=== PATIENT | female | born 1935 | race Caucasian/White ===

== ENCOUNTER 2018-04-01 13:22 | Observation (INO) | payer MEDICARE, OTHER ==
[2018-04-01] MEDS ORDERED: Sodium Chloride 0.9% 2.5 ML Syringe FLUSH PRN (13:42)
[2018-04-01] MEDS ORDERED: Sodium Chloride 0.9% 10 ML Syringe FLUSH PRN (13:42)
--- NOTE | 2018-04-01 13:43 | EDM.PDOC ---
ED HPI GENERAL MEDICAL PROBLEM - General Chief Complaint: General Stated Complaint: PT DOESN'T FEEL GOOD, BODY SORE Time Seen by Provider: 04/01/18 13:43 Source of Information: Reports: Patient History Limitations: Reports: No Limitations - History of Present Illness INITIAL COMMENTS - FREE TEXT/NARRATIVE: HISTORY AND PHYSICAL: History of present illness: Patient is an 82-year-old female who presents to the emergency room today with complaints of chest pain that is located under the left breast and goes into the axillary line. She states approximately one week ago she had fallen backwards onto her buttocks from the bed to the floor. She states since that time she has generalized body aches, intermittent nausea and left-sided chest wall pain that has not improved. [place] live with her daughter. The daughter had brought the patient to [facility] on Tuesday; a chest xray was done - but they did not have any of the results. Past Medical history of TIA, stents, and heart disease. Review of systems: As per history of present illness and below otherwise all systems reviewed and negative. Past medical history: As per history of present illness and as reviewed below otherwise noncontributory. Surgical history: As per history of present illness and as reviewed below otherwise noncontributory. Social history: No reported history of drug or alcohol abuse. Family history: As per history of present illness and as reviewed below otherwise noncontributory. Physical exam: General: Well-developed and well-nourished 82-year-old female. Alert and oriented. Nontoxic appearing and in no acute distress. HEENT: Atraumatic, normocephalic, pupils equal and reactive bilaterally, negative for conjunctival pallor or scleral icterus, mucous membranes moist, TMs normal bilaterally, hard of hearing, throat clear, neck supple, nontender, trachea midline. No drooling or trismus noted. No meningeal signs Lungs: Clear to auscultation, breath sounds equal bilaterally, chest nontender. Heart: S1S2, regular rate and rhythm without overt murmur Abdomen: Soft, nondistended, nontender. Negative for masses or hepatosplenomegaly. Negative for costovertebral tenderness. Pelvis: Stable nontender. Genitourinary: Deferred. Rectal: Deferred. Skin: Intact, warm, dry. No lesions or rashes noted. Extremities: Atraumatic, negative for cords or calf pain. Neurovascular unremarkable. Neuro: Awake, alert, oriented. Cranial nerves II through XII unremarkable. Cerebellum unremarkable. Motor and sensory unremarkable throughout. Exam nonfocal. Notes: BUN/creatinine and creatinine are slightly elevated which I feel is due to her being slightly dehydrated. Nursing staff was able to get a urine but was not enough volume to run for urinalysis. We will try again for urine sample to send. Patient has had multiple stools while being here in the emergency room. The patient reports she does take a stool softener as she frequently does get constipated. But denies any abdominal pain associated with the loose stools. Stool studies have been added. Head CT and chest x-ray are unremarkable. Still waiting for urinalysis and stool results. No signs are stable. Patient states she feels somewhat improved. I did offer admission which she is agreeable. Dr. Muhammad was consult did on this case. She will be admitted for observation for chest pain rule out CA Diagnostics: CBC, CMP, troponin, EKG, UA, chest x-ray, head CT Therapeutics: IV 250 mL bolus then 125 an hour Impression: Chest Pain rule out CA Plan: Survey patient to [facility] with telemetry per Dr. Muhammad Definitive disposition and diagnosis as appropriate pending reevaluation and review of above. Left Rib pain Pain Score (Numeric/FACES): 7 - Related Data Allergies Allergy/AdvReac Type Severity Reaction Status Date / Time No Known Allergies Allergy Verified 04/01/18 13:54 Home Meds: Home Meds Aspirin 81 mg PO DAILY 04/01/18 [History] Baclofen 04/01/18 [History] Clopidogrel [Plavix] 75 mg PO DAILY 04/01/18 [History] Esomeprazole Magnesium 1 mg PO QAM 04/01/18 [History] Hydrocodone/Acetaminophen [Hydrocodon-Acetaminophn 10-325] 1 tab PO Q4H PRN 07/09 [History] Isosorbide Mononitrate [Isosorbide Mononitrate ER] 60 mg PO DAILY 04/01/18 [ History] Levothyroxine Sodium [Levo-T] 50 mcg PO DAILY 04/01/18 [History] Lisinopril [Zestril] 40 mg PO DAILY 04/01/18 [History] Potassium Chloride 20 meq PO DAILY 04/01/18 [History] Sertraline HCl 100 mg PO DAILY 04/01/18 [History] Spironolactone [Aldactone] 0.5 tab PO DAILY 04/01/18 [History] amLODIPine Besylate [Amlodipine Besylate] 10 mg PO DAILY 04/01/18 [History] traZODone HCl [Trazodone HCl] 100 mg PO QPM 04/01/18 [History] ED ROS GENERAL - Review of Systems Review Of Systems: ROS reveals no pertinent complaints other than HPI. ED EXAM, GENERAL - Physical Exam Exam: See Below (See dictation) Course - Vital Signs Last Recorded V/S: Last Vital Signs Temp 98.2 F 04/01/18 15:44 Pulse 89 04/01/18 15:44 Resp BP 118/72 04/01/18 15:44 Pulse Ox 91 L 04/01/18 15:44 - Orders/Labs/Meds Orders: Active Orders 24 hr Category Date Time Status Admission Status [Patient Status] [ADT] Stat ADT 04/01/18 15:13 Ordered Cardiac Monitoring [RC] . DIRECTED Care 04/01/18 15:13 Ordered EKG Documentation Completion [RC] STAT Care 04/01/18 13:42 Active Telemetry Monitoring [Cardiac Monitoring] [RC] . Care 04/01/18 15:39 Active DIRECTED Chest 1V Frontal [CR] Stat Exams 04/01/18 13:42 Taken Head wo Cont [CT] Stat Exams 04/01/18 13:53 Ordered CULTURE STOOL + CAMPY+SHIGATOX [RM] Stat Lab 04/01/18 14:49 Ordered UA W/MICROSCOPIC [URIN] Stat Lab 04/01/18 13:53 Ordered Sodium Chloride 0.9% [Saline Flush] Med 04/01/18 13:42 Active 10 ml FLUSH ASDIRECTED PRN Sodium Chloride 0.9% [Saline Flush] Med 04/01/18 13:42 Active 2.5 ml FLUSH ASDIRECTED PRN Saline Lock Insert [OM.PC] Stat Oth 04/01/18 13:42 Ordered Medication Orders Sodium Chloride (Saline Flush) 10 ml FLUSH ASDIRECTED PRN PRN Reason: Keep Vein Open Sodium Chloride (Saline Flush) 2.5 ml FLUSH ASDIRECTED PRN PRN Reason: Keep Vein Open Labs: Laboratory Tests 04/01/18 04/01/18 Range/Units 14:39 14:39 WBC 6.62 (4.0-11.0) K/uL RBC 4.67 (4.30-5.90) M/uL Hgb 14.0 (12.0-16.0) g/dL Hct 42.1 (36.0-46.0) % MCV 90.1 (80.0-98.0) fL MCH 30.0 (27.0-32.0) pg MCHC 33.3 (31.0-37.0) g/dL RDW Std Deviation 45.3 (28.0-62.0) fl RDW Coeff of Leanna 14 (11.0-15.0) % Plt Count 200 (150-400) K/uL MPV 11.00 (7.40-12.00) fL Neut % (Auto) 74.8 (48.0-80.0) % Lymph % (Auto) 15.6 L (16.0-40.0) % [place] % (Auto) 9.1 (0.0-15.0) % Eos % (Auto) 0.3 (0.0-7.0) % Baso % (Auto) 0.2 (0.0-1.5) % Neut # (Auto) 5.0 (1.4-5.7) K/uL Lymph # (Auto) 1.0 (0.6-2.4) K/uL [place] # (Auto) 0.6 (0.0-0.8) K/uL Eos # (Auto) 0.0 (0.0-0.7) K/uL Baso # (Auto) 0.0 (0.0-0.1) K/uL Nucleated RBC % 0.0 /100WBC Nucleated RBCs # 0 K/uL Sodium 138 (136-145) mmol/L Potassium 3.8 (3.5-5.1) mmol/L Chloride 102 (98-107) mmol/L Carbon Dioxide 28.2 (21.0-32.0) mmol/L BUN 20 H (7.0-18.0) mg/dL Creatinine 1.2 H (0.6-1.0) mg/dL Est Cr Clr Drug Dosing 33.08 mL/min Estimated GFR (MDRD) 43.1 ml/min Glucose 112 H (74-106) mg/dL Calcium 8.7 (8.5-10.1) mg/dL Total Bilirubin 0.4 (0.2-1.0) mg/dL AST 13 L (15-37) IU/L ALT 24 (14-63) IU/L Alkaline Phosphatase 61 (46-116) U/L Creatine Kinase 194 (26-308) U/L Troponin I < 0.050 (0.000-0.056) ng/mL Total Protein 7.0 (6.4-8.2) g/dL Albumin 3.4 (3.4-5.0) g/dL Globulin 3.6 H (2.0-3.5) g/dL Albumin/Globulin Ratio 0.9 L (1.3-2.8) Meds: Medications Generic Name Dose Route Start Last Admin Trade Name Freq PRN Reason Stop Dose Admin Sodium Chloride 10 ml 04/01/18 13:42 Saline Flush FLUSH ASDIRECTED PRN Keep Vein Open Sodium Chloride 2.5 ml 04/01/18 13:42 Saline Flush FLUSH ASDIRECTED PRN Keep Vein Open Discontinued Medications Generic Name Dose Route Start Last Admin Trade Name Freq PRN Reason Stop Dose Admin Sodium Chloride 1,000 mls @ 999 mls/hr 04/01/18 13:47 04/01/18 15:46 Normal Saline IV 04/01/18 14:47 Infused STAT ONE Infusion Ketorolac Tromethamine 30 mg 04/01/18 13:54 04/01/18 14:43 Toradol IVPUSH 04/01/18 13:55 30 mg ONETIME ONE Administration Ondansetron HCl 4 mg 04/01/18 13:54 04/01/18 14:39 Zofran IVPUSH 04/01/18 13:55 4 mg ONETIME ONE Administration Departure - Departure Time of Disposition: 15:20 Disposition: Refer to Observation Clinical Impression: Chest pain, rule out acute myocardial infarction - Discharge Information Referrals: PCP,None [Primary Care Provider] - Forms: ED Department Discharge - My Orders Last 24 Hours: My Active Orders 04/01/18 13:42 EKG Documentation Completion [RC] STAT Chest 1V Frontal [CR] Stat Sodium Chloride 0.9% [Saline Flush] 10 ml FLUSH ASDIRECTED PRN Sodium Chloride 0.9% [Saline Flush] 2.5 ml FLUSH ASDIRECTED PRN Saline Lock Insert [OM.PC] Stat 04/01/18 13:53 Head wo Cont [CT] Stat UA W/MICROSCOPIC [URIN] Stat 04/01/18 14:49 CULTURE STOOL + CAMPY+SHIGATOX [RM] Stat 04/01/18 15:13 Admission Status [Patient Status] [ADT] Stat Cardiac Monitoring [RC] . DIRECTED - Assessment/Plan Last 24 Hours: My Active Orders 04/01/18 13:42 EKG Documentation Completion [RC] STAT Chest 1V Frontal [CR] Stat Sodium Chloride 0.9% [Saline Flush] 10 ml FLUSH ASDIRECTED PRN Sodium Chloride 0.9% [Saline Flush] 2.5 ml FLUSH ASDIRECTED PRN Saline Lock Insert [OM.PC] Stat 04/01/18 13:53 Head wo Cont [CT] Stat UA W/MICROSCOPIC [URIN] Stat 04/01/18 14:49 CULTURE STOOL + CAMPY+SHIGATOX [RM] Stat 04/01/18 15:13 Admission Status [Patient Status] [ADT] Stat Cardiac Monitoring [RC] . DIRECTED
[2018-04-01] MEDS ORDERED: Sodium Chloride 0.9% 1,000 ML IV ONE (13:47)
[2018-04-01] MEDS ORDERED: Ketorolac 30 MG/ML SDV IVPUSH ONE (13:54)
[2018-04-01] MEDS ORDERED: Ondansetron 4 MG/2 ML SDV IVPUSH ONE (13:54)
[2018-04-01 15:08] LABS: CHLORIDE,CL 102 mmol/L (98-107); SODIUM,NA 138 mmol/L (136-145)
[2018-04-01] MEDS ORDERED: Ondansetron 4 MG/2 ML SDV IVPUSH PRN (16:41)
[2018-04-01] MEDS ORDERED: Nitroglycerin 0.4 MG Tab.SL SL PRN (16:41)
[2018-04-01] MEDS ORDERED: Enoxaparin 40 MG/0.4 ML Syringe SUBCUT SCH (16:45)
[2018-04-01] MEDS ORDERED: Sodium Chloride 0.9% 1,000 ML IV SCH (16:45)
[2018-04-01] MEDS ORDERED: Morphine 2 MG/ML Syringe IVPUSH PRN (16:47)
--- NOTE | 2018-04-01 17:10 | PCM.HP ---
H&P History of Present Illness - General Date of Service: 04/01/18 Admit Problem/Dx: Admission Diagnosis/Problem Admission Diagnosis/Problem Chest pain Source of Information: Patient, Family History Limitations: Reports: No Limitations - History of Present Illness Initial Comments - Free Text/Narative: The patient is an 82-year-old female who presented to the ER today with chest pain, overall body aches, and "just not feeling good". The patient recently moved to [place] to live with her daughter. She established care with Dr. Barragan last week. One week ago she slid off the bed and landed on her buttocks. Since then she's been having intermittent nausea, generalized body aches and chest pain associated with breathing between her shoulder blades. The patient does have a past medical history of CAD with cardiac stents. She was having similar symptoms when she saw Dr. Person, and they did a chest x-ray , but they're unsure of the results. In the ER, initial workup included a CBC, CMP, negative troponin, and CK within normal limits. A EKG was done that showed an irregular rhythm, right bundle branch block, left ventricular hypertrophy with intraventricular conduction delay. Chest x-ray was performed and showed scarring in the left midlung, but no consolidation, and a normal heart size. 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 . UA and stool studies are pending. The patient had multiple episodes of loose stool while in the ER. Patient believes that's because she was taking too many laxatives at home this past week. Left Rib pain Pain Score (Numeric/FACES): 7 - Related Data Allergies/Adverse Reactions: Allergies Allergy/AdvReac Type Severity Reaction Status Date / Time No Known Allergies Allergy Verified 04/01/18 13:54 Home Medications: Home Meds Aspirin 81 mg PO DAILY 04/01/18 [History] Baclofen 04/01/18 [History] Clopidogrel [Plavix] 75 mg PO DAILY 04/01/18 [History] Esomeprazole Magnesium 1 mg PO QAM 04/01/18 [History] Hydrocodone/Acetaminophen [Hydrocodon-Acetaminophn 10-325] 1 tab PO Q4H PRN 07/09 [History] Isosorbide Mononitrate [Isosorbide Mononitrate ER] 60 mg PO DAILY 04/01/18 [ History] Levothyroxine Sodium [Levo-T] 50 mcg PO DAILY 04/01/18 [History] Lisinopril [Zestril] 40 mg PO DAILY 04/01/18 [History] Potassium Chloride 20 meq PO DAILY 04/01/18 [History] Sertraline HCl 100 mg PO DAILY 04/01/18 [History] Spironolactone [Aldactone] 0.5 tab PO DAILY 04/01/18 [History] amLODIPine Besylate [Amlodipine Besylate] 10 mg PO DAILY 04/01/18 [History] traZODone HCl [Trazodone HCl] 100 mg PO QPM 04/01/18 [History] Past Medical History Cardiovascular History: Reports: High Cholesterol, Hypertension, SC, Stents Respiratory History: Reports: Other (See Below) Other Respiratory History: previous smoker - quit 1995 Gastrointestinal History: Reports: Chronic Constipation, Inflammatory Bowel Disease Genitourinary History: Reports: Urinary Incontinence, Other (See Below) Other Genitourinary History: stress incontinence Musculoskeletal History: Reports: Arthritis, Back Pain, Chronic Neurological History: Reports: TIA Psychiatric History: Reports: Anxiety Endocrine/Metabolic History: Reports: Hypothyroidism Hematologic History: Reports: None Immunologic History: Reports: None Oncologic (Cancer) History: Reports: None Dermatologic History: Reports: None - Past Surgical History HEENT Surgical History: Reports: Cataract Surgery, Naso-Sinus Surgery Cardiovascular Surgical History: Reports: Coronary Artery Stent Respiratory Surgical History: Reports: None GI Surgical History: Reports: None Female Surgical History: Reports: None Endocrine Surgical History: Reports: Thyroidectomy Neurological Surgical History: Reports: Discectomy Social & Family History - Family History Family Medical History: Noncontributory - Tobacco Use Smoking Status *Q: Former Smoker Used Tobacco, but Quit: Yes Month/Year Tobacco Last Used: 30 years ago - Caffeine Use Caffeine Use: Reports: Coffee, Other Other Caffeine Use: gatorade - Recreational Drug Use Recreational Drug Use: No H&P Review of Systems - Review of Systems: Review Of Systems: See Below General: Reports: No Symptoms HEENT: Reports: Headaches Pulmonary: Reports: Shortness of Breath, Pleuritic Chest Pain Cardiovascular: Reports: Chest Pain Gastrointestinal: Reports: Diarrhea, Nausea. Denies: Abdominal Pain, Vomiting Genitourinary: Reports: No Symptoms Musculoskeletal: Reports: Back Pain Skin: Reports: No Symptoms Psychiatric: Reports: No Symptoms Neurological: Reports: No Symptoms Exam - Exam Exam: See Below - Vital Signs Vital Signs: Last Vital Signs Temp 98 F 04/01/18 16:06 Pulse 83 04/01/18 16:06 Resp 18 04/01/18 16:06 BP 163/91 H 04/01/18 16:06 Pulse Ox 93 L 04/01/18 16:06 Weight: 68.402 kg - Exam General: Alert, Oriented, Cooperative HEENT: Conjunctiva Clear, Mucosa Moist & [place], Posterior Pharynx Clear. No: Pupils Equal (L>R) Lungs: Clear to Auscultation, Normal Respiratory Effort Cardiovascular: Regular Rate, Irregular Rhythm, Systolic Murmur GI/Abdominal Exam: Normal Bowel Sounds, Soft, Non-Tender, No Distention Extremities: Normal Inspection, Non-Tender, No Pedal Edema Skin: Warm, Dry Neurological: Strength Equal Bilateral, Normal Speech Neuro Extensive - Motor, Sensory, Reflexes: CN II-XII Intact Psychiatric: Alert, Normal Affect, Normal Mood - Patient Data Lab Results Last 24 hrs: Laboratory Results - last 24 hr 04/01/18 04/01/18 Range/Units 14:39 14:39 WBC 6.62 (4.0-11.0) K/uL RBC 4.67 (4.30-5.90) M/uL Hgb 14.0 (12.0-16.0) g/dL Hct 42.1 (36.0-46.0) % MCV 90.1 (80.0-98.0) fL MCH 30.0 (27.0-32.0) pg MCHC 33.3 (31.0-37.0) g/dL RDW Std Deviation 45.3 (28.0-62.0) fl RDW Coeff of Leanna 14 (11.0-15.0) % Plt Count 200 (150-400) K/uL MPV 11.00 (7.40-12.00) fL Neut % (Auto) 74.8 (48.0-80.0) % Lymph % (Auto) 15.6 L (16.0-40.0) % [place] % (Auto) 9.1 (0.0-15.0) % Eos % (Auto) 0.3 (0.0-7.0) % Baso % (Auto) 0.2 (0.0-1.5) % Neut # (Auto) 5.0 (1.4-5.7) K/uL Lymph # (Auto) 1.0 (0.6-2.4) K/uL [place] # (Auto) 0.6 (0.0-0.8) K/uL Eos # (Auto) 0.0 (0.0-0.7) K/uL Baso # (Auto) 0.0 (0.0-0.1) K/uL Nucleated RBC % 0.0 /100WBC Nucleated RBCs # 0 K/uL Sodium 138 (136-145) mmol/L Potassium 3.8 (3.5-5.1) mmol/L Chloride 102 (98-107) mmol/L Carbon Dioxide 28.2 (21.0-32.0) mmol/L BUN 20 H (7.0-18.0) mg/dL Creatinine 1.2 H (0.6-1.0) mg/dL Est Cr Clr Drug Dosing 33.08 mL/min Estimated GFR (MDRD) 43.1 ml/min Glucose 112 H (74-106) mg/dL Calcium 8.7 (8.5-10.1) mg/dL Total Bilirubin 0.4 (0.2-1.0) mg/dL AST 13 L (15-37) IU/L ALT 24 (14-63) IU/L Alkaline Phosphatase 61 (46-116) U/L Creatine Kinase 194 (26-308) U/L Troponin I < 0.050 (0.000-0.056) ng/mL Total Protein 7.0 (6.4-8.2) g/dL Albumin 3.4 (3.4-5.0) g/dL Globulin 3.6 H (2.0-3.5) g/dL Albumin/Globulin Ratio 0.9 L (1.3-2.8) Result Diagrams: 04/01/18 14:39 04/01/18 14:39 Problem List Initiated/Reviewed/Updated: Yes Orders Last 24hrs: Active Orders 24 hr Category Date Time Status Admission Status [Patient Status] [ADT] Stat ADT 04/01/18 15:13 Active Cardiac Monitoring [RC] . DIRECTED Care 04/01/18 15:13 Active Cardiac Monitoring [RC] . DIRECTED Care 04/01/18 16:41 Active EKG Documentation Completion [RC] STAT Care 04/01/18 13:42 Active Intake and Output [RC] ASDIRECTED Care 04/01/18 16:41 Active Telemetry Monitoring [Cardiac Monitoring] [RC] . Care 04/01/18 15:39 Active DIRECTED Vital Signs [RC] PER UNIT ROUTINE Care 04/01/18 16:41 Active Heart Healthy Diet [DIET] Diet 04/02/18 Breakfast Active Chest 1V Frontal [CR] Stat Exams 04/01/18 13:42 Taken Head wo Cont [CT] Stat Exams 04/01/18 13:53 Taken CULTURE STOOL + CAMPY+SHIGATOX [RM] Stat Lab 04/01/18 14:49 Ordered UA W/MICROSCOPIC [URIN] Stat Lab 04/01/18 13:53 Ordered Acetaminophen/HYDROcodone [Roscoe 325-10 MG] Med 04/01/18 16:45 Active 1 tab PO Q4H PRN Aspirin Med 04/02/18 09:00 Active 81 mg PO DAILY Baclofen [Lioresal] Med 04/01/18 16:45 Unverified DOSE UNIT RTE FREQ Clopidogrel [Plavix] Med 04/02/18 09:00 Active 75 mg PO DAILY Enoxaparin [Lovenox] Med 04/01/18 16:45 Active 40 mg SUBCUT Q24H Esomeprazole Magnesium Med 04/02/18 09:00 Ordered 1 mg PO QAM Isosorbide Mononitrate [Imdur] Med 04/02/18 09:00 Active 60 mg PO DAILY Levothyroxine [Synthroid] Med 04/02/18 07:30 Active 50 mcg PO ACBREAKFAST Lisinopril [Zestril] Med 04/02/18 09:00 Ordered 40 mg PO DAILY Morphine Med 04/01/18 16:47 Active 2 mg IVPUSH Q2H PRN Nitroglycerin [Nitrostat] Med 04/01/18 16:41 Active 0.4 mg SL Q5M PRN Ondansetron [Zofran] Med 04/01/18 16:41 Active 4 mg IVPUSH Q4H PRN Potassium Chloride [Potassium Chloride] Med 04/02/18 09:00 Ordered 20 meq PO DAILY Sertraline [Zoloft] Med 04/02/18 09:00 Ordered 100 mg PO DAILY Sodium Chloride 0.9% [Normal Saline] 1,000 ml Med 04/01/18 16:45 Active IV ASDIRECTED Sodium Chloride 0.9% [Saline Flush] Med 04/01/18 13:42 Active 10 ml FLUSH ASDIRECTED PRN Sodium Chloride 0.9% [Saline Flush] Med 04/01/18 13:42 Active 2.5 ml FLUSH ASDIRECTED PRN Spironolactone [Aldactone] Med 04/02/18 09:00 Ordered DOSE mg PO DAILY amLODIPine [Norvasc] Med 04/02/18 09:00 Active 10 mg PO DAILY traZODone HCl [Trazodone HCl] Med 04/01/18 18:00 Ordered 100 mg PO QPM Saline Lock Insert [OM.PC] Stat Oth 04/01/18 13:42 Ordered Resuscitation Status Routine Resus Stat 04/01/18 16:41 Ordered Medication Orders Hydrocodone Bitart/Acetaminophen ([place]coe 325-10 Mg) 1 tab PO Q4H PRN PRN Reason: Pain Amlodipine Besylate (Norvasc) 10 mg PO DAILY [facility] Aspirin (Aspirin) 81 mg PO DAILY [facility] Clopidogrel Bisulfate (Plavix) 75 mg PO DAILY [facility] Enoxaparin Sodium (Lovenox) 40 mg SUBCUT Q24H [facility] Sodium Chloride (Normal Saline) 1,000 mls @ 100 mls/hr IV ASDIRECTED TAMARA Stop: 04/02/18 02:44 Isosorbide Mononitrate (Imdur) 60 mg PO DAILY [facility] Levothyroxine Sodium (Synthroid) 50 mcg PO ACBREAKFAST [facility] Morphine Sulfate (Morphine) 2 mg IVPUSH Q2H PRN PRN Reason: Chest Pain Nitroglycerin (Nitrostat) 0.4 mg SL Q5M PRN PRN Reason: Chest Pain Non-Formulary Medication (Esomeprazole Magnesium) 1 mg PO QAM [facility] Non-Formulary Medication (Lisinopril [Zestril]) 40 mg PO DAILY [facility] Non-Formulary Medication (Potassium Chloride [Potassium Chloride]) 20 meq PO DAILY [facility] Ondansetron HCl (Zofran) 4 mg IVPUSH Q4H PRN PRN Reason: Nausea/Vomiting Sertraline HCl (Zoloft) 100 mg PO DAILY [facility] Sodium Chloride (Saline Flush) 10 ml FLUSH ASDIRECTED PRN PRN Reason: Keep Vein Open Sodium Chloride (Saline Flush) 2.5 ml FLUSH ASDIRECTED PRN PRN Reason: Keep Vein Open Spironolactone (Aldactone) mg PO DAILY [facility] Trazodone HCl (Trazodone Hcl) 100 mg PO QPM [facility] Assessment/Plan Comment:: 1. Admit for observation 2. Code Status- Full 3. Vitals per routine 4. I/Os per routine 5. Diet- heart healthy 6. DVT prophylaxis with lovenox 7. Chest pain in patient with significant cardiac history, ACS rule out Plan- Her pain sounds more pleuritic but we will place the patient on telemetry and trend her troponins. She will have morphine and nitro if she develops chest pain. 8. TERRY likely secondary to dehydration Plan- She already recieved fluids in the ER but we will give her 1 L of Normal saline at 100cc/hr. Recheck kidney function in the morning 9. Nausea/diarrhea Plan- Zofran for nausea. Stool studies pending for diarrhea 10.PMH- hypertension, hyperlipidemia, hypothyroidism, depression, CAD- continue home meds
[2018-04-01] MEDS: Acetaminophen/HYDROcodone 325-10 MG Tab PO PRN (17:12)
[2018-04-01] MEDS ORDERED: traZODone 50 MG Tab PO SCH (21:00)
[2018-04-02] MEDS: Acetaminophen/HYDROcodone 325-10 MG Tab PO PRN ×2 (03:06→08:47)
[2018-04-02] MEDS ORDERED: Levothyroxine 50 MCG Tab PO SCH (07:30)
[2018-04-02] MEDS ORDERED: Omeprazole 20 MG Cap.CR PO SCH (07:30)
[2018-04-02] MEDS ORDERED: Spironolactone 25 MG Tab PO SCH (09:00)
[2018-04-02] MEDS ORDERED: amLODIPine 5 MG Tab PO SCH (09:00)
[2018-04-02] MEDS ORDERED: Lisinopril 10 MG Tab PO SCH (09:00)
[2018-04-02] MEDS ORDERED: Aspirin 81 MG Tab.Chew PO SCH (09:00)
[2018-04-02] MEDS ORDERED: Isosorbide Mononitrate 60 MG Tab.ER PO SCH (09:00)
[2018-04-02] MEDS ORDERED: Sertraline 100 MG Tab PO SCH (09:00)
[2018-04-02] MEDS ORDERED: Potassium Chloride 20 MEQ Tab.ER PO SCH (09:00)
[2018-04-02] MEDS ORDERED: Clopidogrel 75 MG Tab PO SCH (09:00)
--- NOTE | 2018-04-03 17:08 | CR ---
EXAM DATE: 04/01/18 PATIENT'S AGE: 82 Patient: JOHAN FREED Facility: [place], [place] Site . Site : 1935 Study: XRay Chest [id number] 3:14:55 PM Ordering Physician: Doctor Kraus Final Report: INDICATION: Back pain. Fatigue. TECHNIQUE: Portable chest. IMPRESSION: The image is rotated. Scar in the left mid lung. No pulmonary consolidation. Normal heart size allowing for rotation and portable technique. No effusions or pneumothorax. Vascularity is normal. Dictated by Jagdish Figueroa MD @ Apr 01 2018 3:41PM (Electronic Signature) Report Signed by Proxy. ALISHA
--- NOTE | 2018-04-03 17:09 | CT ---
EXAM DATE: 04/01/18 PATIENT'S AGE: 82 Patient: JOHAN FREED Facility: [place], [place] Site . Site : 1935 Study: CT Head [id number] 3:15:46 PM Ordering Physician: Doctor Kraus Final Report: INDICATION: Fatigue. TECHNIQUE: CT scan of the brain without contrast. FINDINGS: The ventricles and sulci: Mildly prominent. Brain: No mass lesion. No hemorrhage. Vessels: Atherosclerotic dense calcification is present. A densely calcified ectatic segment of the right vertebral artery is identified. The vessel over of long segment measures about 8 millimeters in diameter. Calvarium: Normal. Sinuses: Small mucous retention cyst in the left sphenoid. IMPRESSION: 1. Cerebral volume loss. 2. No intracranial mass, or hemorrhage. 3. 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 Please note that all CT scans at this facility use dose modulation, iterative reconstruction, and/or weight-based dosing when appropriate to reduce radiation dose to as low as reasonably achievable. Dictated by Jagdish Figueroa MD @ Apr 01 2018 3:42PM (Electronic Signature) Report Signed by Proxy. ALISHA
== END 2018-04-02 11:30 | disposition home or self-care (01) ==
LOC: MW.ED 13:22 → MW.ICU 15:13
PROVIDERS: ADMIT Internal Medicine; ATTEND Internal Medicine
DX: R07.89 Other chest pain (principal); N17.9 Acute kidney failure, unspecified; E86.0 Dehydration; R11.0 Nausea; R19.7 Diarrhea, unspecified; I10 Essential (primary) hypertension; I67.2 Cerebral atherosclerosis; I25.10 Atherosclerotic heart disease of native coronary artery without angina pectoris; E78.5 Hyperlipidemia, unspecified; F32.9 Major depressive disorder, single episode, unspecified; E78.00 Pure hypercholesterolemia, unspecified; E03.9 Hypothyroidism, unspecified; I25.2 Old myocardial infarction; Z87.891 Personal history of nicotine dependence; Z79.82 Long term (current) use of aspirin; Z79.899 Other long term (current) drug therapy; Z95.5 Presence of coronary angioplasty implant and graft; Z86.73 Personal history of transient ischemic attack (TIA), and cerebral infarction without residual deficits
CPT/HCPCS: 36415; 70450; 71045; 80053; 81001; 82550; 84484; 85025; 93005; 96361; 96372; 96374; 96375; 99285; A9270; G0378; J1650; J1885; J2405; J7040; 99284

== ENCOUNTER 2019-01-17 13:53 | Observation (INO) | payer MEDICARE, OTHER ==
[2019-01-17] MEDS ORDERED: Sodium Chloride 0.9% 2.5 ML Syringe FLUSH PRN (13:56)
[2019-01-17] MEDS ORDERED: Sodium Chloride 0.9% 10 ML Syringe FLUSH PRN (13:56)
--- NOTE | 2019-01-17 14:00 | EDM.PDOC ---
ED HPI GENERAL MEDICAL PROBLEM - General Chief Complaint: Respiratory Problem Stated Complaint: AMB Time Seen by Provider: 01/17/19 13:57 Source of Information: Reports: Patient History Limitations: Reports: No Limitations - History of Present Illness INITIAL COMMENTS - FREE TEXT/NARRATIVE: HISTORY AND PHYSICAL: History of present illness: Patient is an 83-year-old female who presents to the emergency room with complaints of chest pain, shortness of breath and weakness over the past 4-5 days. Patient was initially evaluated at [facility] for medication refill. During that time she had mentioned her symptoms to the provider. He recommended that she come for evaluation to the emergency room. EMS states that upon arrival her oxygen saturation was 89% on room air. Once they applied oxygen she reported that her symptoms had resolved. Patient is currently pain-free and denies any dyspnea or weakness. Reports she had a headache [employer], but this as well seems to be resolving. Past medical history of mini stroke, RBBB, chronic pain, coronary artery disease , COPD, [place] with stenting 3 years ago. Former smoker. Patient denies any fever, chills, headache, change in vision, syncope or near syncope. Denies any shortness of breath or cough. Denies any abdominal pain, nausea, vomiting, diarrhea, constipation or dysuria. Has not noted any blood in urine or stool. Patient has been eating and drinking appropriately. Review of systems: As per history of present illness and below otherwise all systems reviewed and negative. Past medical history: As per history of present illness and as reviewed below otherwise noncontributory. Surgical history: As per history of present illness and as reviewed below otherwise noncontributory. Social history: See social history for further information Family history: As per history of present illness and as reviewed below otherwise noncontributory. Physical exam: General: Well-developed and well-nourished 83-year-old female. Alert and oriented. Nontoxic appearing and in no acute distress. HEENT: Atraumatic, normocephalic, pupils equal and reactive bilaterally, negative for conjunctival pallor or scleral icterus, mucous membranes moist, trachea midline. No drooling or trismus noted. No meningeal signs. No hot potato voice noted. Lungs: Diminished with poor air exchange bases bilaterally, breath sounds equal bilaterally, chest nontender. Heart: S1S2, regular rate and rhythm without overt murmur Abdomen: Soft, nondistended, nontender. Negative for masses. Negative for costovertebral tenderness. Pelvis: Stable nontender. Skin: Intact, warm, dry. No lesions or rashes noted. Extremities: Atraumatic, moves all extremities per self without difficulty or deficits, negative for cords or calf pain. Neurovascular unremarkable. Neuro: Awake, alert, oriented. Cranial nerves II through XII unremarkable. Cerebellum unremarkable. Motor and sensory unremarkable throughout. Exam nonfocal. Notes: Upon arrival patient is 87-89% on room air. She states she is currently chest pain-free. She is agreeable to diagnostics. She did have 324 mg of aspirin prior to arrival by EMS. Lab work is unremarkable. Chest x-ray shows new mild congestive failure. Patient remains chest pain-free. Patient is agreeable for observation admission. Dr. Muhammad was consulted and agrees to further manage and assess patient on [facility] floor. Diagnostics: CBC, CMP, troponin, EKG, one view chest, BNP, UA Therapeutics: Saline lock, DuoNeb Impression: Hypoxia Chest pain rule out [place] Plan: Observation admission with telemetry Definitive disposition and diagnosis as appropriate pending reevaluation and review of above. headache Pain Score (Numeric/FACES): 5 - Related Data Allergies Allergy/AdvReac Type Severity Reaction Status Date / Time No Known Allergies Allergy Verified 04/01/18 13:54 Home Meds: Home Meds Aspirin 81 mg PO DAILY 04/01/18 [History] Baclofen 1 tab PO TID 04/01/18 [History] Clopidogrel [Plavix] 75 mg PO DAILY 04/01/18 [History] Esomeprazole Magnesium 1 mg PO QAM 04/01/18 [History] Hydrocodone/Acetaminophen [Hydrocodon-Acetaminophn 10-325] 1 tab PO Q6H PRN 07/09 [History] Isosorbide Mononitrate [Isosorbide Mononitrate ER] 60 mg PO DAILY 04/01/18 [ History] Levothyroxine Sodium [Levo-T] 50 mcg PO DAILY 04/01/18 [History] Lisinopril [Zestril] 40 mg PO DAILY 04/01/18 [History] Sertraline HCl 100 mg PO DAILY 04/01/18 [History] Spironolactone [Aldactone] 0.5 tab PO DAILY 04/01/18 [History] amLODIPine Besylate [Amlodipine Besylate] 10 mg PO DAILY 04/01/18 [History] traZODone HCl [Trazodone HCl] 100 mg PO QPM 04/01/18 [History] Nitroglycerin 1 tab SL TID PRN 01/17/19 [History] Polyethylene Glycol 3350 [MiraLAX] 1 dose PO DAILY PRN 01/17/19 [History] guaiFENesin [Mucinex] 1 tab PO DAILY PRN 01/17/19 [History] hydrOXYzine HCl [hydrOXYzine] 1 tab PO TID PRN 01/17/19 [History] Past Medical History Cardiovascular History: Reports: High Cholesterol, Hypertension, [place], Stents Respiratory History: Reports: Other (See Below) Other Respiratory History: previous smoker - quit 1995 Gastrointestinal History: Reports: Chronic Constipation, Inflammatory Bowel Disease Genitourinary History: Reports: Urinary Incontinence, Other (See Below) Other Genitourinary History: stress incontinence Musculoskeletal History: Reports: Arthritis, Back Pain, Chronic Neurological History: Reports: TIA Psychiatric History: Reports: Anxiety Endocrine/Metabolic History: Reports: Hypothyroidism Hematologic History: Reports: None Immunologic History: Reports: None Oncologic (Cancer) History: Reports: None Dermatologic History: Reports: None - Past Surgical History HEENT Surgical History: Reports: Cataract Surgery, Naso-Sinus Surgery Cardiovascular Surgical History: Reports: Coronary Artery Stent Respiratory Surgical History: Reports: None GI Surgical History: Reports: None Female Surgical History: Reports: None Endocrine Surgical History: Reports: Thyroidectomy Neurological Surgical History: Reports: Discectomy Social & Family History - Family History Family Medical History: Noncontributory - Caffeine Use Caffeine Use: Reports: Coffee, Other Other Caffeine Use: gatorade ED ROS GENERAL - Review of Systems Review Of Systems: ROS reveals no pertinent complaints other than HPI. ED EXAM, GENERAL - Physical Exam Exam: See Below (See dictation) Course - Vital Signs Last Recorded V/S: Last Vital Signs Temp 99.3 F 01/17/19 13:57 Pulse 102 H 01/17/19 13:57 Resp 28 H 01/17/19 13:57 BP 131/100 H 01/17/19 13:57 Pulse Ox 92 L 01/17/19 14:47 - Orders/Labs/Meds Orders: Active Orders 24 hr Category Date Time Status EKG Documentation Completion [RC] STAT Care 01/17/19 13:56 Active RT Aerosol Therapy [RC] ASDIRECTED Care 01/17/19 14:09 Active Sodium Chloride 0.9% [Saline Flush] Med 01/17/19 13:56 Active 10 ml FLUSH ASDIRECTED PRN Sodium Chloride 0.9% [Saline Flush] Med 01/17/19 13:56 Active 2.5 ml FLUSH ASDIRECTED PRN Saline Lock Insert [OM.PC] Stat Oth 01/17/19 13:56 Ordered Medication Orders Sodium Chloride (Saline Flush) 10 ml FLUSH ASDIRECTED PRN PRN Reason: Keep Vein Open Sodium Chloride (Saline Flush) 2.5 ml FLUSH ASDIRECTED PRN PRN Reason: Keep Vein Open Labs: Laboratory Tests 01/17/19 01/17/19 01/17/19 Range/Units 14:06 14:06 14:06 WBC 7.16 (4.0-11.0) K/uL RBC 4.42 (4.30-5.90) M/uL Hgb 13.2 (12.0-16.0) g/dL Hct 41.3 (36.0-46.0) % MCV 93.4 (80.0-98.0) fL MCH 29.9 (27.0-32.0) pg MCHC 32.0 (31.0-37.0) g/dL RDW Std Deviation 47.8 (28.0-62.0) fl RDW Coeff of Leanna 14 (11.0-15.0) % Plt Count 150 (150-400) K/uL MPV 11.80 (7.40-12.00) fL Neut % (Auto) 72.1 (48.0-80.0) % Lymph % (Auto) 12.2 L (16.0-40.0) % [place] % (Auto) 12.7 (0.0-15.0) % Eos % (Auto) 2.7 (0.0-7.0) % Baso % (Auto) 0.3 (0.0-1.5) % Neut # (Auto) 5.2 (1.4-5.7) K/uL Lymph # (Auto) 0.9 (0.6-2.4) K/uL [place] # (Auto) 0.9 H (0.0-0.8) K/uL Eos # (Auto) 0.2 (0.0-0.7) K/uL Baso # (Auto) 0.0 (0.0-0.1) K/uL Nucleated RBC % 0.0 /100WBC Nucleated RBCs # 0 K/uL Sodium 140 (136-145) mmol/L Potassium 4.0 (3.5-5.1) mmol/L Chloride 103 (98-107) mmol/L Carbon Dioxide 26.9 (21.0-32.0) mmol/L BUN 23 H (7.0-18.0) mg/dL Creatinine 1.1 H (0.6-1.0) mg/dL Est Cr Clr Drug Dosing 36.91 mL/min Estimated GFR (MDRD) 47.6 ml/min Glucose 137 H (74-106) mg/dL Calcium 9.2 (8.5-10.1) mg/dL Total Bilirubin 0.4 (0.2-1.0) mg/dL AST 16 (15-37) IU/L ALT 22 (14-63) IU/L Alkaline Phosphatase 75 (46-116) U/L Troponin I < 0.050 (0.000-0.056) ng/mL B-Natriuretic Peptide 32 (<100) PG/ML Total Protein 7.5 (6.4-8.2) g/dL Albumin 3.8 (3.4-5.0) g/dL Globulin 3.7 (2.6-4.0) g/dL Albumin/Globulin Ratio 1.0 (0.9-1.6) Urine Color Urine Appearance Urine pH (5.0-8.0) Ur Specific [place] (1.001-1.035) Urine Protein (NEGATIVE) mg/dL Urine Glucose (UA) (NEGATIVE) mg/dL Urine Ketones (NEGATIVE) mg/dL Urine Occult Blood (NEGATIVE) Urine Nitrite (NEGATIVE) Urine Bilirubin (NEGATIVE) Urine Urobilinogen (<2.0) EU/dL Ur Leukocyte Esterase (NEGATIVE) Urine RBC (0-2/HPF) Urine WBC (0-5/HPF) Ur Epithelial Cells (NONE-FEW) Urine Bacteria (NEGATIVE) 01/17/19 Range/Units 14:54 WBC (4.0-11.0) K/uL RBC (4.30-5.90) M/uL Hgb (12.0-16.0) g/dL Hct (36.0-46.0) % MCV (80.0-98.0) fL MCH (27.0-32.0) pg MCHC (31.0-37.0) g/dL RDW Std Deviation (28.0-62.0) fl RDW Coeff of Leanna (11.0-15.0) % Plt Count (150-400) K/uL MPV (7.40-12.00) fL Neut % (Auto) (48.0-80.0) % Lymph % (Auto) (16.0-40.0) % [place] % (Auto) (0.0-15.0) % Eos % (Auto) (0.0-7.0) % Baso % (Auto) (0.0-1.5) % Neut # (Auto) (1.4-5.7) K/uL Lymph # (Auto) (0.6-2.4) K/uL [place] # (Auto) (0.0-0.8) K/uL Eos # (Auto) (0.0-0.7) K/uL Baso # (Auto) (0.0-0.1) K/uL Nucleated RBC % /100WBC Nucleated RBCs # K/uL Sodium (136-145) mmol/L Potassium (3.5-5.1) mmol/L Chloride (98-107) mmol/L Carbon Dioxide (21.0-32.0) mmol/L BUN (7.0-18.0) mg/dL Creatinine (0.6-1.0) mg/dL Est Cr Clr Drug Dosing mL/min Estimated GFR (MDRD) ml/min Glucose (74-106) mg/dL Calcium (8.5-10.1) mg/dL Total Bilirubin (0.2-1.0) mg/dL AST (15-37) IU/L ALT (14-63) IU/L Alkaline Phosphatase (46-116) U/L Troponin I (0.000-0.056) ng/mL B-Natriuretic Peptide (<100) PG/ML Total Protein (6.4-8.2) g/dL Albumin (3.4-5.0) g/dL Globulin (2.6-4.0) g/dL Albumin/Globulin Ratio (0.9-1.6) Urine Color YELLOW Urine Appearance CLEAR Urine pH 6.0 (5.0-8.0) Ur Specific [place] 1.015 (1.001-1.035) Urine Protein TRACE H (NEGATIVE) mg/dL Urine Glucose (UA) NEGATIVE (NEGATIVE) mg/dL Urine Ketones NEGATIVE (NEGATIVE) mg/dL Urine Occult Blood NEGATIVE (NEGATIVE) Urine Nitrite NEGATIVE (NEGATIVE) Urine Bilirubin NEGATIVE (NEGATIVE) Urine Urobilinogen 0.2 (<2.0) EU/dL Ur Leukocyte Esterase NEGATIVE (NEGATIVE) Urine RBC NONE SEEN (0-2/HPF) Urine WBC 0-2 (0-5/HPF) Ur Epithelial Cells OCCASIONAL (NONE-FEW) Urine Bacteria NOT SEEN (NEGATIVE) Meds: Medications Generic Name Dose Route Start Last Admin Trade Name Freq PRN Reason Stop Dose Admin Sodium Chloride 10 ml 01/17/19 13:56 Saline Flush FLUSH ASDIRECTED PRN Keep Vein Open Sodium Chloride 2.5 ml 01/17/19 13:56 Saline Flush FLUSH ASDIRECTED PRN Keep Vein Open Discontinued Medications Generic Name Dose Route Start Last Admin Trade Name Freq PRN Reason Stop Dose Admin Albuterol/Ipratropium 3 ml 01/17/19 14:09 01/17/19 14:19 Duoneb 3.0-0.5 Mg/3 Ml NEB 01/17/19 14:10 3 ml ONETIME ONE Administration Departure - Departure Time of Disposition: 15:35 Disposition: Refer to Observation Clinical Impression: Chest pain, rule out acute myocardial infarction, Hypoxia - Discharge Information Referrals: PCP,None [Primary Care Provider] - Forms: ED Department Discharge - My Orders Last 24 Hours: My Active Orders 01/17/19 13:56 EKG Documentation Completion [RC] STAT Sodium Chloride 0.9% [Saline Flush] 10 ml FLUSH ASDIRECTED PRN Sodium Chloride 0.9% [Saline Flush] 2.5 ml FLUSH ASDIRECTED PRN Saline Lock Insert [OM.PC] Stat 01/17/19 14:09 RT Aerosol Therapy [RC] ASDIRECTED - Assessment/Plan Last 24 Hours: My Active Orders 01/17/19 13:56 EKG Documentation Completion [RC] STAT Sodium Chloride 0.9% [Saline Flush] 10 ml FLUSH ASDIRECTED PRN Sodium Chloride 0.9% [Saline Flush] 2.5 ml FLUSH ASDIRECTED PRN Saline Lock Insert [OM.PC] Stat 01/17/19 14:09 RT Aerosol Therapy [RC] ASDIRECTED
[2019-01-17] MEDS ORDERED: Albuterol/Ipratropium 3.0-0.5 MG/3 ML Neb Soln NEB ONE (14:09)
--- NOTE | 2019-01-17 14:55 | CR ---
HISTORY: Chest pain COMPARISON: 04/01/2018 FINDINGS: A portable erect AP view of the chest was obtained at 1421 hours. There is new mild vascular engorgement with mild interstitial pulmonary edema consistent with mild congestive failure. Again seen is mild linear density in the left lateral midlung consistent with mild pulmonary fibrosis. The heart remains top normal in size. The mediastinum is normal in appearance. The osseous structures are normal in appearance for the patient`s age. IMPRESSION: New mild congestive failure. Heart remains top-normal in size. Dictated by Evens Rodas MD @ Jan 17 2019 2:51PM Signed by Dr. Evens Rodas @ Jan 17 2019 2:53PM
[2019-01-17 15:03] LABS: CHLORIDE,CL 103 mmol/L (98-107); SODIUM,NA 140 mmol/L (136-145)
--- NOTE | 2019-01-17 15:12 | CT ---
HISTORY: Pain. TECHNIQUE: CT brain without contrast. COMPARISON: CT brain 04/01/2018. FINDINGS: No acute intracranial hemorrhage. No extra-axial collection. No mass effect or midline shift. 9 mm calcification near the left transverse sinus, possibly a dural calcification, is unchanged. Similar smaller calcification on the right is also unchanged. Soler-white differentiation is maintained. Mild volume loss with proportional prominence of the CSF spaces. Mild hypoattenuation in the periventricular white matter is nonspecific but likely chronic small vessel ischemic change. Cisterns are patent. Calvarium is intact. Patchy mucosal thickening in ethmoid air cells. Mucosal thickening in the right sphenoid sinus with layering fluid. Mastoid air cells are clear. IMPRESSION: 1. No acute intracranial abnormality. 2. Paranasal sinus inflammatory changes. Please note that all CT scans at this facility use dose modulation, iterative reconstruction, and/or weight-based dosing when appropriate to reduce radiation dose to as low as reasonably achievable. Dictated by Keshawn Tijerina MD @ Jan 17 2019 3:06PM Signed by Dr. Keshawn Tijerina @ Jan 17 2019 3:12PM
[2019-01-17] MEDS ORDERED: Acetaminophen 325 MG Tab PO PRN (16:33)
[2019-01-17] MEDS ORDERED: Albuterol/Ipratropium 3.0-0.5 MG/3 ML Neb Soln NEB PRN (16:34)
--- NOTE | 2019-01-17 16:44 | PCM.HP ---
H&P History of Present Illness - General Date of Service: 01/17/19 Admit Problem/Dx: Admission Diagnosis/Problem Admission Diagnosis/Problem Chest pain, rule out acute myocardial infarction Source of Information: Patient History Limitations: Reports: No Limitations - History of Present Illness Initial Comments - Free Text/Narative: 83F hx of CAD, HTN s/p stenting presented to the ER w/ complaint of chest tightness, shortness of breath, cough x1 week. She endorses that she feels like she has a chest cold. Chest tightness is intermittent, and not active during my assessment. She complains of a leg cramp her left calf. She denies nausea vomiting fever. denies abdominal pain. headache Pain Score (Numeric/FACES): 5 - Related Data Allergies/Adverse Reactions: Allergies Allergy/AdvReac Type Severity Reaction Status Date / Time No Known Allergies Allergy Verified 04/01/18 13:54 Home Medications: Home Meds Aspirin 81 mg PO DAILY 04/01/18 [History] Baclofen 1 tab PO TID 04/01/18 [History] Clopidogrel [Plavix] 75 mg PO DAILY 04/01/18 [History] Esomeprazole Magnesium 1 mg PO QAM 04/01/18 [History] Hydrocodone/Acetaminophen [Hydrocodon-Acetaminophn 10-325] 1 tab PO Q6H PRN 07/09 [History] Isosorbide Mononitrate [Isosorbide Mononitrate ER] 60 mg PO DAILY 04/01/18 [ History] Levothyroxine Sodium [Levo-T] 50 mcg PO DAILY 04/01/18 [History] Lisinopril [Zestril] 40 mg PO DAILY 04/01/18 [History] Sertraline HCl 100 mg PO DAILY 04/01/18 [History] Spironolactone [Aldactone] 0.5 tab PO DAILY 04/01/18 [History] amLODIPine Besylate [Amlodipine Besylate] 10 mg PO DAILY 04/01/18 [History] traZODone HCl [Trazodone HCl] 100 mg PO QPM 04/01/18 [History] Nitroglycerin 1 tab SL TID PRN 01/17/19 [History] Polyethylene Glycol 3350 [MiraLAX] 1 dose PO DAILY PRN 01/17/19 [History] guaiFENesin [Mucinex] 1 tab PO DAILY PRN 01/17/19 [History] hydrOXYzine HCl [hydrOXYzine] 1 tab PO TID PRN 01/17/19 [History] Past Medical History Cardiovascular History: Reports: High Cholesterol, Hypertension, AL, Stents Respiratory History: Reports: Other (See Below) Other Respiratory History: previous smoker - quit 1995 Gastrointestinal History: Reports: Chronic Constipation, Inflammatory Bowel Disease Genitourinary History: Reports: Urinary Incontinence, Other (See Below) Other Genitourinary History: stress incontinence Musculoskeletal History: Reports: Arthritis, Back Pain, Chronic Neurological History: Reports: TIA Psychiatric History: Reports: Anxiety Endocrine/Metabolic History: Reports: Hypothyroidism Hematologic History: Reports: None Immunologic History: Reports: None Oncologic (Cancer) History: Reports: None Dermatologic History: Reports: None - Infectious Disease History Infectious Disease History: Reports: Measles - Past Surgical History HEENT Surgical History: Reports: Cataract Surgery, Naso-Sinus Surgery Cardiovascular Surgical History: Reports: Coronary Artery Stent Respiratory Surgical History: Reports: None GI Surgical History: Reports: None Female Surgical History: Reports: None Endocrine Surgical History: Reports: Thyroidectomy Neurological Surgical History: Reports: Discectomy Social & Family History - Family History Family Medical History: Noncontributory - Tobacco Use Smoking Status *Q: Never Smoker Second Hand Smoke Exposure: No - Caffeine Use Caffeine Use: Reports: Coffee, Other Other Caffeine Use: gatorade - Recreational Drug Use Recreational Drug Use: No H&P Review of Systems - Review of Systems: Review Of Systems: ROS reveals no pertinent complaints other than HPI. Exam - Exam Exam: See Below - Vital Signs Vital Signs: Last Vital Signs Temp 37.4 C 01/17/19 13:57 Pulse 106 H 01/17/19 15:40 Resp 16 01/17/19 15:40 BP 155/88 H 01/17/19 15:40 Pulse Ox 94 L 01/17/19 15:40 Weight: 73.482 kg - Exam Quality Assessment: Supplemental Oxygen General: Alert, Oriented, 4 HEENT: PERRLA, Hearing Intact, Mucosa Moist & [place], Nares Patent, Normal Nasal Septum, Posterior Pharynx Clear, Conjunctiva Clear, EOMI, EACs Clear, TMs Clear Neck: Supple, Trachea Midline, 2 Lungs: Clear to Auscultation, Normal Respiratory Effort Cardiovascular: Regular Rate, Regular Rhythm GI/Abdominal Exam: Normal Bowel Sounds, Soft, Non-Tender, No Organomegaly, No Distention, No Abnormal Bruit, No Mass Back Exam: Normal Inspection, Full Range of Motion, NT Extremities: Normal Inspection, Normal Range of Motion, Non-Tender, No Pedal Edema, Normal Capillary Refill Peripheral Pulses: 1+: Dorsalis Pedis (L), Dorsalis Pedis (R) Neurological: Cranial Nerves Intact, Reflexes Equal Bilateral Neuro Extensive - Mental Status: Alert, Oriented x3, Normal Mood/Affect, Normal Cognition DTR: 2+: Achilles (L), Achilles (R) Psychiatric: Alert, Normal Affect, Normal Mood - Patient Data Lab Results Last 24 hrs: Laboratory Results - last 24 hr 01/17/19 01/17/19 01/17/19 Range/Units 14:06 14:06 14:06 WBC 7.16 (4.0-11.0) K/uL RBC 4.42 (4.30-5.90) M/uL Hgb 13.2 (12.0-16.0) g/dL Hct 41.3 (36.0-46.0) % MCV 93.4 (80.0-98.0) fL MCH 29.9 (27.0-32.0) pg MCHC 32.0 (31.0-37.0) g/dL RDW Std Deviation 47.8 (28.0-62.0) fl RDW Coeff of Leanna 14 (11.0-15.0) % Plt Count 150 (150-400) K/uL MPV 11.80 (7.40-12.00) fL Neut % (Auto) 72.1 (48.0-80.0) % Lymph % (Auto) 12.2 L (16.0-40.0) % Wheeler % (Auto) 12.7 (0.0-15.0) % Eos % (Auto) 2.7 (0.0-7.0) % Baso % (Auto) 0.3 (0.0-1.5) % Neut # (Auto) 5.2 (1.4-5.7) K/uL Lymph # (Auto) 0.9 (0.6-2.4) K/uL Wheeler # (Auto) 0.9 H (0.0-0.8) K/uL Eos # (Auto) 0.2 (0.0-0.7) K/uL Baso # (Auto) 0.0 (0.0-0.1) K/uL Nucleated RBC % 0.0 /100WBC Nucleated RBCs # 0 K/uL Sodium 140 (136-145) mmol/L Potassium 4.0 (3.5-5.1) mmol/L Chloride 103 (98-107) mmol/L Carbon Dioxide 26.9 (21.0-32.0) mmol/L BUN 23 H (7.0-18.0) mg/dL Creatinine 1.1 H (0.6-1.0) mg/dL Est Cr Clr Drug Dosing 36.91 mL/min Estimated GFR (MDRD) 47.6 ml/min Glucose 137 H (74-106) mg/dL Calcium 9.2 (8.5-10.1) mg/dL Total Bilirubin 0.4 (0.2-1.0) mg/dL AST 16 (15-37) IU/L ALT 22 (14-63) IU/L Alkaline Phosphatase 75 (46-116) U/L Troponin I < 0.050 (0.000-0.056) ng/mL B-Natriuretic Peptide 32 (<100) PG/ML Total Protein 7.5 (6.4-8.2) g/dL Albumin 3.8 (3.4-5.0) g/dL Globulin 3.7 (2.6-4.0) g/dL Albumin/Globulin Ratio 1.0 (0.9-1.6) Urine Color Urine Appearance Urine pH (5.0-8.0) Ur Specific [place] (1.001-1.035) Urine Protein (NEGATIVE) mg/dL Urine Glucose (UA) (NEGATIVE) mg/dL Urine Ketones (NEGATIVE) mg/dL Urine Occult Blood (NEGATIVE) Urine Nitrite (NEGATIVE) Urine Bilirubin (NEGATIVE) Urine Urobilinogen (<2.0) EU/dL Ur Leukocyte Esterase (NEGATIVE) Urine RBC (0-2/HPF) Urine WBC (0-5/HPF) Ur Epithelial Cells (NONE-FEW) Urine Bacteria (NEGATIVE) 01/17/19 Range/Units 14:54 WBC (4.0-11.0) K/uL RBC (4.30-5.90) M/uL Hgb (12.0-16.0) g/dL Hct (36.0-46.0) % MCV (80.0-98.0) fL MCH (27.0-32.0) pg MCHC (31.0-37.0) g/dL RDW Std Deviation (28.0-62.0) fl RDW Coeff of Leanna (11.0-15.0) % Plt Count (150-400) K/uL MPV (7.40-12.00) fL Neut % (Auto) (48.0-80.0) % Lymph % (Auto) (16.0-40.0) % Wheeler % (Auto) (0.0-15.0) % Eos % (Auto) (0.0-7.0) % Baso % (Auto) (0.0-1.5) % Neut # (Auto) (1.4-5.7) K/uL Lymph # (Auto) (0.6-2.4) K/uL Wheeler # (Auto) (0.0-0.8) K/uL Eos # (Auto) (0.0-0.7) K/uL Baso # (Auto) (0.0-0.1) K/uL Nucleated RBC % /100WBC Nucleated RBCs # K/uL Sodium (136-145) mmol/L Potassium (3.5-5.1) mmol/L Chloride (98-107) mmol/L Carbon Dioxide (21.0-32.0) mmol/L BUN (7.0-18.0) mg/dL Creatinine (0.6-1.0) mg/dL Est Cr Clr Drug Dosing mL/min Estimated GFR (MDRD) ml/min Glucose (74-106) mg/dL Calcium (8.5-10.1) mg/dL Total Bilirubin (0.2-1.0) mg/dL AST (15-37) IU/L ALT (14-63) IU/L Alkaline Phosphatase (46-116) U/L Troponin I (0.000-0.056) ng/mL B-Natriuretic Peptide (<100) PG/ML Total Protein (6.4-8.2) g/dL Albumin (3.4-5.0) g/dL Globulin (2.6-4.0) g/dL Albumin/Globulin Ratio (0.9-1.6) Urine Color YELLOW Urine Appearance CLEAR Urine pH 6.0 (5.0-8.0) Ur Specific [place] 1.015 (1.001-1.035) Urine Protein TRACE H (NEGATIVE) mg/dL Urine Glucose (UA) NEGATIVE (NEGATIVE) mg/dL Urine Ketones NEGATIVE (NEGATIVE) mg/dL Urine Occult Blood NEGATIVE (NEGATIVE) Urine Nitrite NEGATIVE (NEGATIVE) Urine Bilirubin NEGATIVE (NEGATIVE) Urine Urobilinogen 0.2 (<2.0) EU/dL Ur Leukocyte Esterase NEGATIVE (NEGATIVE) Urine RBC NONE SEEN (0-2/HPF) Urine WBC 0-2 (0-5/HPF) Ur Epithelial Cells OCCASIONAL (NONE-FEW) Urine Bacteria NOT SEEN (NEGATIVE) Result Diagrams: 01/17/19 14:06 01/17/19 14:06 Problem List Initiated/Reviewed/Updated: Yes Orders Last 24hrs: Active Orders 24 hr Category Date Time Status Admission Status [Patient Status] [ADT] Stat ADT 01/17/19 15:36 Active Antiembolic Devices [RC] PER UNIT ROUTINE Care 01/17/19 16:34 Ordered Cardiac Monitoring [RC] . DIRECTED Care 01/17/19 15:36 Active Cardiac Monitoring [RC] CONTINUOUS Care 01/17/19 16:33 Ordered Oxygen Therapy [RC] PRN Care 01/17/19 16:33 Ordered RT Aerosol Therapy [RC] ASDIRECTED Care 01/17/19 14:09 Active RT Aerosol Therapy [RC] ASDIRECTED Care 01/17/19 16:34 Ordered VTE/DVT Education [RC] PER UNIT ROUTINE Care 01/17/19 16:33 Ordered Vital Signs [RC] Q4H Care 01/17/19 16:33 Ordered Regular Diet [DIET] Diet 01/17/19 Dinner Ordered BASIC METABOLIC PANEL,BMP [CHEM] AM Lab 01/18/19 05:11 Ordered TROPONIN I [CHEM] Q6H Lab 01/17/19 20:06 Ordered TROPONIN I [CHEM] Q6H Lab 01/18/19 02:06 Ordered Acetaminophen [Tylenol] Med 01/17/19 16:33 Ordered 650 mg PO Q4H PRN Albuterol/Ipratropium [DuoNeb 3.0-0.5 MG/3 ML] Med 01/17/19 16:34 Ordered 3 ml NEB Q4HRRT PRN Heparin Sodium Med 01/17/19 16:45 Ordered 5,000 units SUBCUT Q8H Sodium Chloride 0.9% [Saline Flush] Med 01/17/19 13:56 Active 10 ml FLUSH ASDIRECTED PRN Sodium Chloride 0.9% [Saline Flush] Med 01/17/19 13:56 Active 2.5 ml FLUSH ASDIRECTED PRN Saline Lock Insert [OM.PC] Stat Oth 01/17/19 13:56 Ordered Sequential Compression Device [OM.PC] Per Unit Routine Oth 01/17/19 16:33 Ordered Resuscitation Status Routine Resus Stat 01/17/19 16:33 Ordered Medication Orders Acetaminophen (Tylenol) 650 mg PO Q4H PRN PRN Reason: Pain (Mild 1-3)/fever Albuterol/Ipratropium (Duoneb 3.0-0.5 Mg/3 Ml) 3 ml NEB Q4HRRT PRN PRN Reason: Wheezing Heparin Sodium (Porcine) (Heparin Sodium) 5,000 units SUBCUT Q8H TAMARA Sodium Chloride (Saline Flush) 10 ml FLUSH ASDIRECTED PRN PRN Reason: Keep Vein Open Sodium Chloride (Saline Flush) 2.5 ml FLUSH ASDIRECTED PRN PRN Reason: Keep Vein Open Assessment/Plan Comment:: Assessment: #1. Acute bronchitis #2. ACS rule out #3. History of CAD, HTN, angina, AL, CKD, HLD Plan: #1. Refer to observation. Vitals per floor. Cardiac monitoring. Cardiac diet. Full code #2. SCD+Heparin for DVT Prophylaxis. DuoNeb q4h prn wheezing/sob #3. Troponin q6h x2. initial set negative #4. Restart home meds as ordered #5. Anticipate dc 1-2 days
[2019-01-17] MEDS ORDERED: guaiFENesin 600 MG Tab.ER PO PRN (16:46)
[2019-01-17] MEDS ORDERED: hydrOXYzine HCl 25 MG Tab PO PRN (16:46)
[2019-01-17] MEDS: Heparin Sodium 5,000 Units/ML Vial SUBCUT SCH (17:36)
[2019-01-17] MEDS ORDERED: Metoprolol Tartrate 25 MG Tab PO ONE (17:42)
[2019-01-17] MEDS ORDERED: traZODone 50 MG Tab PO SCH ×2 (18:00→21:00)
[2019-01-17] MEDS: Acetaminophen/HYDROcodone 325-5 MG Tab PO PRN (18:48)
[2019-01-17] MEDS: Baclofen 10 MG Tab PO SCH (22:26)
[2019-01-18] MEDS: Benzocaine/Cetylpyridinium/Menthol Lozenge MUCMEM PRN ×3 (00:24→12:14)
[2019-01-18] MEDS: Heparin Sodium 5,000 Units/ML Vial SUBCUT SCH ×2 (00:24→08:08)
[2019-01-18] MEDS: Acetaminophen/HYDROcodone 325-5 MG Tab PO PRN ×2 (04:33→12:56)
[2019-01-18] MEDS: Baclofen 10 MG Tab PO SCH ×2 (05:22→14:05)
[2019-01-18] MEDS ORDERED: Aspirin 81 MG Tab.Chew PO SCH (09:00)
[2019-01-18] MEDS ORDERED: Sertraline 100 MG Tab PO SCH (09:00)
[2019-01-18] MEDS ORDERED: Lisinopril 10 MG Tab PO SCH (09:00)
[2019-01-18] MEDS ORDERED: Isosorbide Mononitrate 60 MG Tab.ER PO SCH (09:00)
[2019-01-18] MEDS ORDERED: Clopidogrel 75 MG Tab PO SCH (09:00)
[2019-01-18] MEDS ORDERED: Spironolactone 25 MG Tab PO SCH (09:00)
[2019-01-18] MEDS ORDERED: Levothyroxine 50 MCG Tab PO SCH (09:00)
== END 2019-01-18 14:20 | disposition home or self-care (01) ==
LOC: MW.ED 13:53 → MW.MS 15:48
PROVIDERS: ADMIT Internal Medicine; ATTEND Internal Medicine
DX: R07.89 Other chest pain (principal); J20.9 Acute bronchitis, unspecified; I25.119 Atherosclerotic heart disease of native coronary artery with unspecified angina pectoris; I25.2 Old myocardial infarction; I10 Essential (primary) hypertension; E03.9 Hypothyroidism, unspecified; E78.00 Pure hypercholesterolemia, unspecified; K58.1 Irritable bowel syndrome with constipation; Z86.73 Personal history of transient ischemic attack (TIA), and cerebral infarction without residual deficits; Z79.02 Long term (current) use of antithrombotics/antiplatelets; Z79.899 Other long term (current) drug therapy; Z95.5 Presence of coronary angioplasty implant and graft; Z87.891 Personal history of nicotine dependence
CPT/HCPCS: 36415; 70450; 71045; 80048; 80053; 81001; 83880; 84484; 85025; 93005; 94640; 96372; 99285; A9270; G0378; J1644; 99284; J7620-GY